=== PATIENT | female | born 1975 | race Caucasian/White ===

== ENCOUNTER 2024-10-04 18:40 | Emergency (ER) | payer SELFPAY ==
[2024-10-04 18:44] VITALS: BP 172/113
--- NOTE | 2024-10-04 18:55 | ED.GENMED ---
ED Provider Triage
-
Patient seen by provider in Triage?: Seen in Triage
Attestation: A medical screening examination has been initiated by a qualified medical provider. Based on the assessment performed at this time, it has been determined that an emergent medical condition may exist and the patient has been informed
that further medical evaluation and possible additional diagnostic testing may be needed.
HPI: 49yoF here with nausea x 3 weeks with intermittent vomiting and diarrhea. C/o decreased appetite and feeling distended. Started with palpitations today and a headache.
GENERAL: Alert , in no apparent distress
EYE: No visual abnormalities.
NECK: Trachea midline
ENT: No visible abnormalities.
LUNGS: No acute respiratory distress
NEUROLOGICAL: Alert and oriented
SKIN: Skin intact. No visible changes.
MUSCULOSKELETAL: Moving extremities normally
PSYCH: Normal and appropriate interaction.
This is a medical evaluation conducted in person to initiate diagnostic evaluation and provide initial therapeutics. Please see further documentation by the treating clinician.
Abdominal labs, EKG, and CT head and CT abdomen ordered.
History of Present Illness
General
Chief Complaint: Abdominal Symptoms
History of Present Illness
History of Present Illness:
See triage note
Phy Exam
Physical Exam
Physical Exam:
See triage note
Course
Orders/Labs/Results
Orders:
Orders
10/04/24 18:49
Electrocardiogram (*1) Urgent
Reason for Study: Abdominal Pain
EKG- Treatment ONCE
Test Result ONCE
10/04/24 18:54
Complete Blood Count/With Diff Urgent
Comprehensive Metabolic Panel Urgent
HCG, Serum Qualitative Screen Urgent
Comment: Notify provider if positive test present
Lipase Urgent
Abnormal Lab Results
10/04/24
18:54
RBC 3.81 L 10^6/uL
(4.20-5.40)
Hct 35.4 L %
(37.0-47.0)
MCH 34.1 H pg
(27.0-31.0)
Sodium 122 L mmol/L
(135-145)
Chloride 93 L mmol/L
(98-107)
BUN 6 L mg/dl
(7-17)
ALT 74 H U/L
(0-35)
10/04/24 18:54
10/04/24 18:54
Vital Signs
Initial and Last Documented VS:
Initial Vital Signs
Temp Pulse Resp BP Pulse Ox
98.4 F 113 18 172/113 99
10/04/24 18:44 10/04/24 18:44 10/04/24 18:44 10/04/24 18:44 10/04/24 18:44
Last Documented Vital Signs
Temp Pulse Resp BP Pulse Ox
98.4 F 113 18 172/113 99
10/04/24 18:44 10/04/24 18:44 10/04/24 18:44 10/04/24 18:44 10/04/24 18:55
*Pulse Oximetry
SaO2: 99
Oxygen Mode of Delivery: Room air
Patient hypoxic: no (99%)
*Critical Care Note
Total Time (30-74mins, 75-104mins- exclusive of procedures): Not Applicable
Update Note
Update Note:
Patient left AMA after triage assessment.
ED Attending Note
-
Portions of this chart may have been created with voice recognition software.� Occasional wrong word or��sound alike� substitutions may have occurred due to the inherent limitations of voice recognition software.
Discharge Plan
Departure
Patient Disposition: Against Medical Advice
Discharge Problem:
Vomiting
Interventions
Interventions:
*Risk Screen - Suicide Last Done: 10/04/24 18:44
*General Assessment Last Done: 10/04/24 18:44
*Neglect/Abuse Screening Last Done: 10/04/24 18:44
*Nursing Disposition Last Done: 10/05/24 00:39
Discharge Date and Time
Discharge Date/Time: 10/05/24 00:57
Print Language: [facility]
[2024-10-04 19:04] LABS: Hematocrit 35.4 % (37.0-47.0); Hemoglobin 13.0 g/dL (12.0-16.0); Mean Corp Hgb Conc. 36.7 g/dL (33.0-37.0); Mean Corpuscular Volume 92.9 fL (81.0-99.0); Nucleated Red Blood Cells % 0 %; Platelet Count 348 10^3/uL (130-400); Red Cell Dist. Width 12.4 % (11.5-14.5)
[2024-10-04 19:17] LABS: HCG, Serum Qualitative Screen Negative
[2024-10-04 19:21] LABS: ALT (SGPT) 74 U/L (0-35); AST (SGOT) 30 U/L (14-36); Albumin 4.4 g/dl (3.5-5.0); Alkaline Phosphatase 114 U/L (38-126); Blood Urea Nitrogen 6 mg/dl (7-17); Calcium 8.7 mg/dl (8.4-10.2); Carbon Dioxide 22 mmol/L (22-30); Chloride 93 mmol/L (98-107); Glucose 88 mg/dl (70-99); Potassium 3.6 mmol/L (3.5-5.1); Sodium 122 mmol/L (135-145); Total Protein 6.9 g/dl (6.3-8.2); eGFR > 60.00
[2024-10-04 19:22] LABS: Lipase 30 U/L (23-300)
== END 2024-10-05 00:57 | disposition left against medical advice (07) ==
LOC: EMR 18:40
PROVIDERS: EMERGENCY PHYSICIAN Emergency Medicine
DX: R11.10 Vomiting, unspecified (principal); R19.7 Diarrhea, unspecified; R00.2 Palpitations
CPT/HCPCS: 99284; 80053; 83690; 84703; 85025; 93005